=== PATIENT | female | born 1980 | race Two or more races ===

== ENCOUNTER 2021-11-14 09:28 | Outpatient (CLI) | payer OTHER | END 2021-11-14 09:41 | disposition home or self-care (01) | LOC: RX STUDY 09:28 | PROVIDERS: ATTEND Specialist | DX: R19.09 Other intra-abdominal and pelvic swelling, mass and lump (principal) ==

== ENCOUNTER 2022-10-17 20:28 | Inpatient (IN) | payer OTHER ==
[~2022-10-17] VITALS: Ht 152.4 cm; Wt 68.9 kg
[2022-10-17] MEDS ORDERED: PRENATAL CAPLE1 EAC1 (20:36)
[2022-10-17] MEDS ORDERED: IRON325 MG (20:36)
[2022-10-17] MEDS ORDERED: PEPCID AC20 MG (20:37)
== END 2022-10-19 12:41 | disposition home or self-care (01) | DRG 807 ==
LOC: LDR 20:28 → OB/GYN 20:28
PROVIDERS: ADMIT Obstetrics & Gynecology; ATTEND Obstetrics & Gynecology
PROC: 10E0XZZ Delivery of Products of Conception, External Approach (ICD-10-PCS; principal; 2022-10-17)
PROC: 0KQM0ZZ Repair Perineum Muscle, Open Approach (ICD-10-PCS; 2022-10-17)
PROC: 4A1HXCZ Monitoring of Products of Conception, Cardiac Rate, External Approach (ICD-10-PCS; 2022-10-17)
DX: O70.1 Second degree perineal laceration during delivery (principal); Z37.0 Single live birth; Z3A.37 37 weeks gestation of pregnancy; Z20.822 Contact with and (suspected) exposure to COVID-19